=== PATIENT | male | born 1985 | race Caucasian/White ===

== ENCOUNTER 2018-07-11 19:58 | Emergency (ER) | payer OTHER ==
[~2018-07-11] VITALS: Ht 167.6 cm; Wt 68.0 kg
--- NOTE | 2018-07-11 20:12 | NUR ---
Placed in room 07 . Placed on site monitor, blood pressure machine and pulse oximeter. To gown for exam. Side rails up. Report given to Reid TURK.
[2018-07-11 20:14] VITALS: BP_SYST 152
--- NOTE | 2018-07-11 20:16 | NUR ---
Pt BIB ALS C/O of syncopal episode and possible overdose. Pt states he took 1.5 pills of Waldo and had a syncopal episode while in the restroom. Pt is weak and slow to respond but AAOx 4. Pt is placed in postion of comfort, BP is 152/113. Will continue to monitor.
--- NOTE | 2018-07-11 21:00 | NUR ---
Alayna yang in ED - 07/11/18 at 2334 by SDEDBK ZULEMA Rodriguez at bedside examining patient.
--- NOTE | 2018-07-11 21:00 | NUR ---
ER Dr. Fitzpatrick at bedside examining patient.
[2018-07-11 22:15] LABS: ANION GAP 9 (5-15); CALCIUM 8.6 mg/dL (8.4-11.0); CHLORIDE 104 mmol/L (98-107); CREATININE 0.87 mg/dL (0.55-1.30); GLUCOSE 98 mg/dL (70-99); POTASSIUM 4.6 mmol/L (3.5-5.1); SODIUM SERUM 137 mmol/L (136-145); UREA NITROGEN, BLOOD 18 mg/dL (8-21)
[2018-07-11 22:20] LABS: RED BLOOD CELL COUNT(AUTO) 5.28 MIL/uL (4.2-6.2); WHITE BLOOD COUNT (AUTO) 14.4 K/uL (4.8-10.8)
[2018-07-11 22:21] LABS: ALANINE AMINOTRANSFERASE 38 U/L (12-78); ALBUMIN 3.5 g/dL (3.4-4.8); ASPARTATE AMINOTRANSFERASE 34 U/L (10-37); BASOPHILS % (AUTO) 0.7 % (0.0-2.0); EOSINOPHILS % (AUTO) 3.2 % (0.0-4.0); HEMATOCRIT 44.5 % (36-54); LYMPHOCYTES % (AUTO) 8.9 % (20.5-51.5); MEAN CORPUSCULAR HEMOGLOBIN 29 pg (27-31); MEAN CORPUSCULAR HGB CONC 34 % (32-36); MEAN CORPUSCULAR VOLUME 84 fL (79.0-98.0); MONOCYTES % (AUTO) 6.7 % (1.7-9.3); NEUTROPHILS # (AUTO) 11.6 K/uL (1.8-7.7); NEUTROPHILS % (AUTO) 80.5 % (40.0-70.0); PLATELET COUNT (AUTO) 231 K/uL (130-430); RED CELL DISTRIBUTION WIDTH 13.4 % (9.0-15.0); TOTAL BILIRUBIN 0.3 mg/dL (0.0-1.0)
[2018-07-11 22:22] LABS: BASOPHILS # (AUTO) 0.1 K/uL (0.0-0.2); EOSINOPHILS # (AUTO) 0.5 K/uL (0.0-0.4); LYMPHOCYTES # (AUTO) 1.3 K/uL (1.0-5.5)
[2018-07-11 22:29] LABS: GFR AFRICAN AMERICAN 130 mL/min (>90)
[2018-07-11 22:30] LABS: ACETAMINOPHEN < 1 ug/mL (1-30); ALCOHOL, BLOOD < 3 mg/dL (<10)
[2018-07-11] MEDS ORDERED: NACL 0.9% 1,000 ML IV ONE (22:30)
--- NOTE | 2018-07-11 23:00 | NUR ---
Pt is resting in bed, no acute distress noted at this time. Vital signs are stable, will continue to monitor.
--- NOTE | 2018-07-11 23:45 | NUR ---
Pt is refusing to give a urine sample at this time. ER MD aware and pt will be discharged.
[2018-07-11 23:56] VITALS: BP_SYST 137
== END 2018-07-11 23:56 | disposition home or self-care (01) ==
LOC: SED 19:58
DX: R55 Syncope and collapse (principal); Z88.0 Allergy status to penicillin
CPT/HCPCS: 36415; 80053; 85025; 93005; 96360; 99284; G0480; G0481; G0482; J7030; 99283

== ENCOUNTER 2021-02-16 02:34 | Emergency (ER) | payer MEDICAID, OTHER ==
[~2021-02-16] VITALS: Ht 170.2 cm; Wt 70.3 kg
[2021-02-16 02:35] VITALS: BP_SYST 136
[2021-02-16 02:46] VITALS: BP_SYST 136
== END 2021-02-16 02:46 ==
LOC: SED 02:34
DX: K40.90 Unilateral inguinal hernia, without obstruction or gangrene, not specified as recurrent (principal); Z88.0 Allergy status to penicillin
CPT/HCPCS: 99283